=== PATIENT | male | born 1935 | race Caucasian/White ===

== ENCOUNTER 2020-12-18 10:30 | Outpatient (RCR) | payer MEDICARE, SELFPAY ==
[2020-11-26 15:34] VITALS: BP 170/68; PULSE 55; RESP 16; TEMP 37.2; O2SAT 99
[2020-11-26 16:15] VITALS: PULSE 55
--- NOTE | 2020-12-02 08:14 | PCCPR ---
Absent due to weather Don let our coordinator know due to freezing cold conditions and snow he will not be in this week.
[2020-12-16 11:38] LABS: Glucose Point of Care 140 (65-105)
[2020-12-16 11:38] LABS: Glucose Point of Care 162 (65-105)
--- NOTE | 2020-12-19 09:38 | PCCPR ---
Absent due to elevated B/P's Don called this am to let us know his [employer] office called and asked he hold off on Cardiac rehab for now due to high B/P reading. Asked he give us a call if he has an office visit or plan for return. Currently he does not have an apt scheduled with Dr Taylor until January.
--- NOTE | 2020-12-23 09:23 | PCCPR ---
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 Will place on hold until then.
--- NOTE | 2021-01-21 10:51 | PCCPR ---
Pt called to DC CR per MD's recommendation.
== END 2021-01-21 11:24 | disposition home or self-care (01) ==
LOC: ANHCPREHAB 10:30
PROVIDERS: PCP Internal Medicine; Visit Provider Internal Medicine Cardiovascular Disease
DX: Z95.2 Presence of prosthetic heart valve (principal)
CPT/HCPCS: 82948; 93798

== ENCOUNTER 2025-01-29 13:09 | Outpatient (RCR) | payer MEDICARE, SELFPAY ==
--- NOTE | 2025-01-29 14:16 | PTOPEVDC ---
Assessment and note entered by Rossy Del Cid, PT Thank you for referring Dave Menjivar to [facility].? An evaluation has been completed. No further treatment is needed. Evaluation Information Assessment Status Evaluation ICD-10 Condition Codes (PT) Difficulty Walking R26.2,Abnormalities of gait and mobility R26.9 Other ICD-10 Condition Codes ( unstable gait R26.81 PT) Onset about 6 months ago Subjective Information is very active around the house- yard work, have a garden; independent with all of his self and home tasks; at home does arm weights, walk outside when nice weather ~ 8-10 minutes; have not fallen to the ground, but have had stumbles: catch toe on top step of sunken living room; daughter was concerned about his walking and wanted him to have some therapy. He is not really sure if he needs any or not; activity: home with , who has dementia--have caregiver 24 hours/day to assist; he does not have to physically help her; Reported Pain Level Pain Score 0: Self Report Assessment PT Clinical Summary Michael has the diagnosis of gait instability. He is independent with all of his home and self care tasks. And he does fitness exercises with hand weight, walking, tries to stay as active as he can He has not had any falls, but few stumbles. With the evaluation: balance testing was all WNL: 5 reps sit/grain unloader machine 13 seconds; Zhu balance score is 53/56; 2 minute walking test distance of 500'; on 4 steps uses alternating step pattern, without hand railing; balance activities without loss of balance: side step R, side step L, backwards and marching 20' without loss of balance slight weakness with R and L hip abduction and extension strength. Education for HEP. He is independent with HEP and no further needs. Additional PT services are not indicated for pt. Instructed on HEP and to continue with them and walking/activity as tolerated. Discharge PT. Plan of Care PT Services Indicated No
== END 2025-01-29 14:34 | disposition home or self-care (01) ==
LOC: ANHPT 13:09
PROVIDERS: PCP Internal Medicine
DX: R26.81 Unsteadiness on feet (principal)
CPT/HCPCS: 97110; 97161